=== PATIENT | male | born 1965 | race African-American/Black ===

== ENCOUNTER → 2018-11-20 | Outpatient (CLI) | payer BC ==
--- NOTE | 2018-11-20 11:04 | KCIC ---
AP and Lateral Views of the Chest 11/20/2018 12:00 AM Indication: Noncalcified lung nodule Comparison: CT of the chest January 02, 2012 Findings: There is no focal consolidation or infiltrate identified. The cardiomediastinal silhouette is within normal limits. Heart size is normal. No acute osseous abnormalities are identified. Impression: 1. No evidence of acute cardiopulmonary process. 2. Note that small lung nodules demonstrated on prior CT scan may be radiographically occult. If there is continued clinical interest in imaging follow-up, CT may be helpful. Electronically signed by: Jose Oliver MD (11/20/2018 11:01 AM) [id number]
== END | disposition home or self-care (01) ==
LOC: KCIC 10:17
PROVIDERS: ATTEND Internal Medicine
DX: R91.8 Other nonspecific abnormal finding of lung field (principal)
CPT/HCPCS: 71046

== ENCOUNTER → 2019-11-17 | Outpatient (CLI) | payer BC ==
--- NOTE | 2019-11-17 16:16 | KCIC ---
CHEST PA LATERAL History: Chronic cough Comparison: 11/20/2018 Findings: 2 views of the chest are submitted. There is no infiltrate, pneumothorax, or effusion. Pericardial cardiac silhouette is within normal limits in size. Impression: 1. There is no radiographic evidence of acute cardiopulmonary disease. Electronically signed by: Jose Luis Suazo MD (11/17/2019 4:13 PM) [email or web address]
--- NOTE | 2019-11-17 16:42 | KCIC ---
SINUS COMPLETE 3+V History: Chronic cough Comparison: None. Findings: 3 views of the sinuses are submitted. No significant air-fluid levels are identified by radiographs in the paranasal sinuses although there is probably some nonspecific opacity in the inferior left maxillary sinus. Impression: 1. There is likely some nonspecific opacity in the inferior left maxillary sinus. Electronically signed by: Jose Luis Suazo MD (11/17/2019 4:40 PM) [email or web address]
== END | disposition home or self-care (01) ==
LOC: KCIC 13:27
PROVIDERS: ATTEND Internal Medicine
DX: R05 Cough (principal)
CPT/HCPCS: 70220; 71046